=== PATIENT | male | born 1985 | race Caucasian/White ===

== ENCOUNTER 2017-04-05 09:19 | Emergency (ER) | payer MEDICAID, OTHER ==
[~2017-04-05] VITALS: Ht 170.2 cm; Wt 79.5 kg
[2017-04-05 09:35] VITALS: Ht 170.2 cm; Wt 79.5 kg
--- NOTE | 2017-04-05 10:22 | RADRPT ---
PROCEDURE: XR Chest. CLINICAL INDICATION: chest pain, cough TECHNIQUE: Single frontal view of the chest was obtained COMPARISON: None FINDINGS: The heart and mediastinum are within normal limits. The lungs are clear. There is no pleural effusion or pneumothorax. RPTAT: AA IMPRESSION: No acute disease. .Wei Escamilla MD, MD Date Time Electronically viewed and signed by .Wei Escamilla MD, on 04/05/2017 10:22 .S/
[2017-04-05] MEDS ORDERED: ALBU18HF INHALATION (10:35)
--- NOTE | 2017-04-05 11:23 | ERD ---
ER Documentation Chief Complaint Date/Time DATE: 04/05/17 TIME: 11:15 Chief Complaint COUGH, WHEEZING & SOB X1MTH HPI Patient is a 31-year-old male with no current medical problems who presents with a cough. The patient said that he was sick with "flu" 1 month ago. He also works with medical marijuana. He said that he has had a cough for 1 month. He said that he tried flu medicines [id number] as well as Mucinex. He has had a dry cough that produces yellow phlegm. He had shortness of breath and chest pain as well. He denies fevers. He was sent by Dr. Catherine. He does not currently have a primary doctor. The patient says that he took 7 days of Zithromax that his mother gave to him as well as clindamycin. ROS All systems reviewed and are negative except as per history of present illness. Medications Home Meds Active Scripts Albuterol Sulfate* (Ventolin HFA*) 18 Gm Hfa.aer.ad, 2 PUFF INHALATION Q4H, #1 INHALER Prov:JUAN F MERINO MD 04/05/17 Allergies Allergies: Coded Allergies: No Known Allergy (Unverified , 06/03/15) PMhx/Soc Medical and Surgical Hx: pt denies Medical Hx, pt denies Surgical Hx History of Surgery: Yes (T and A) Anesthesia Reaction: No Hx Neurological Disorder: No Hx Respiratory Disorders: No Hx Cardiac Disorders: No Hx Psychiatric Problems: No Hx Miscellaneous Medical Probl: No Hx Alcohol Use: No Hx Substance Use: Yes (marijuana) Hx Tobacco Use: No FmHx Family History: No diabetes Physical Exam Vitals Vital Signs Date Time Temp Pulse Resp B/P Pulse Ox O2 Delivery O2 Flow Rate FiO2 04/05/17 09:35 98.4 69 20 129/68 95 Physical Exam Const: No acute distress Head: Atraumatic Eyes: Normal Conjunctiva ENT: Normal External Ears, Nose and Mouth. Neck: Full range of motion..~ No meningismus. Resp: Clear to auscultation bilaterally, no retractions or accessory muscle use Cardio: Regular rate and rhythm, no murmurs Abd: Soft, non tender, non distended. Normal bowel sounds Skin: No petechiae or rashes Back: No midline or flank tenderness Ext: No cyanosis, or edema Neur: Awake and alert Psych: Normal Mood and Affect Procedures/MDM Chest X-ray 1V Interpreted by me: Soft Tissue: No acute abnormalities Bones: No acute abnormalities Mediastinum/Cardiac Silhouette/Lungs: No acute abnormalities Patient is a 31-year-old male who presents with a cough. I will treat the patient with albuterol inhaler for cough. I doubt true bacterial infection at this time. There is no signs of pneumonia or pneumothorax. I doubt acute coronary syndrome, pulmonary embolism, or aortic dissection. The patient has normal vital signs. The patient will be discharged home and can return for any worsening symptoms. The patient was given a copy of his x-ray report will need to follow-up the local clinics within 24-48 hours as he does not currently have a primary doctor. Departure Diagnosis: Primary Impression: Reactive airway disease Asthma severity: unspecified severity Asthma complication type: with acute exacerbation Qualified Code: J45.901 - Reactive airway disease, unspecified asthma severity, with acute exacerbation Additional Impression: Cough Condition: Fair Patient Instructions: Cough, Chronic, Uncertain Cause, (Adult) Referrals: [facility] YOU HAVE RECEIVED A MEDICAL SCREENING EXAM AND THE RESULTS INDICATE THAT YOU DO NOT HAVE A CONDITION THAT REQUIRES URGENT TREATMENT IN THE EMERGENCY DEPARTMENT. FURTHER EVALUATION AND TREATMENT OF YOUR CONDITION CAN WAIT UNTIL YOU ARE SEEN IN YOUR DOCTORS OFFICE WITHIN THE NEXT 1-2 DAYS. IT IS YOUR RESPONSIBILITY TO MAKE AN APPOINTMENT FOR FOLOW-UP CARE. IF YOU HAVE A PRIMARY DOCTOR --you should call your primary doctor and schedule an appointment IF YOU DO NOT HAVE A PRIMARY DOCTOR YOU CAN CALL OUR PHYSICIAN REFERRAL HOTLINE AT IF YOU CAN NOT AFFORD TO SEE A PHYSICIAN YOU CAN CHOSE FROM THE FOLLOWING [facility] [address] [facility] [address] [facility] [address] [facility] [address] [facility]. [facility] [address] [facility]. [facility]. [address] Additional Instructions: Call your primary care doctor TOMORROW for an appointment during the next 1-2 days.See the doctor sooner or return here if your condition worsens before your appointment time. JUAN F MERINO MD Apr 05, 2017 11:23
== END 2017-04-05 10:42 | disposition home or self-care (01) ==
LOC: E/R 09:19
DX: J45.901 Unspecified asthma with (acute) exacerbation (principal)
CPT/HCPCS: 71010; Z7502